=== PATIENT | female | born 1985 | race Caucasian/White ===

== ENCOUNTER 2024-05-26 08:00 | Inpatient (IN) | payer OTHER ==
[2024-05-26] MEDS: ELECTROLYTE-148 SOLN 500 ML IV ONE (10:30)
[2024-05-26] MEDS: CITRIC ACID/SODIUM CITRATE 30 ML UNIT-DOSE CUP PO ONE (10:35)
[2024-05-26] MEDS: ELECTROLYTE-148 SOLN 1,000 ML IV SCH (11:00)
[2024-05-26 11:03] VITALS: BMI 31.6
[2024-05-26] MEDS ORDERED: METHYLERGONOVINE MALEATE 0.2 MG/1 ML AMP IM PRN (11:15)
[2024-05-26] MEDS ORDERED: ACETAMINOPHEN 325 MG TABLET (FP) PO PRN (11:15)
[2024-05-26] MEDS ORDERED: morphine SULFATE (PF) 1 MG/2 ML SYRINGE ONE (11:28)
[2024-05-26] MEDS ORDERED: ONDANSETRON 4 MG/2 ML VIAL IVPUSH PRN (12:55)
[2024-05-26] MEDS ORDERED: OXYTOCIN 20 UNITS in 0.9% NS 20 UNIT/1,000 ML INFUS.BAG IV ONE (13:06)
[2024-05-26] MEDS: OXYTOCIN 20 UNITS in 0.9% NS 20 UNIT/1,000 ML INFUS.BAG IV SCH (14:24)
[2024-05-26 15:10] VITALS: O2SAT 98
[2024-05-26 15:58] VITALS: RESP 18
[2024-05-26] MEDS: IBUPROFEN 800 MG/8 ML IJ IVPB PRN (17:29)
[2024-05-26] MEDS: SIMETHICONE 80 MG TAB.CHEW (FP) PO PRN (20:32)
[2024-05-26] MEDS: ACETAMINOPHEN 1000 MG/100 ML BAG IVPB PRN (23:13)
[2024-05-26] MEDS ORDERED: oxyCODONE HCL 5 MG TABLET PO PRN ×2 (23:15)
[2024-05-27 06:56] LABS: BASO % 0.2 % (0-2.0); EOS % 0.3 % (0-4.5); HEMATOCRIT 30.8 % (32.4-45.2); HEMOGLOBIN 10.2 GM/dL (10.7-15.3); LYMPH % 21.4 % (8-40); MCH 28.3 pg (25.7-33.7); MEAN CELL VOLUME 85.6 fl (80-96); MONO % 6.8 % (3.8-10.2); NEUT % 71.3 % (42.8-82.8); PLATELET COUNT 298 10^3/uL (134-434); RDW 14.3 % (11.6-15.6); WHITE BLOOD COUNT 18.4 K/mm3 (4.0-10.0)
[2024-05-27] MEDS: PRENATAL VITAMINS W/ FOLIC ACID TABLET (FP) PO SCH (10:03)
[2024-05-27] MEDS: FERROUS SO4 325 MG TABLET (FP) PO SCH (10:04)
[2024-05-27] MEDS ORDERED: BISACODYL 10 MG SUPP.RECT RC PRN (11:15)
[2024-05-27] MEDS: IBUPROFEN 600 MG TABLET (FP) PO PRN (16:42)
[2024-05-27] MEDS: SENNOSIDES/DOCUSATE COMBO (SENNA PLUS) TABLET (UD) PO PRN (22:17)
[2024-05-28 09:13] VITALS: BP 100/56; PULSE 89; TEMP 98.4
[2024-05-28] MEDS: DIPHTH,PERTUSS(ACELL),TET 0.5 ML DISP.SYRIN IM ONE (14:13)
== END 2024-05-28 14:45 | disposition home or self-care (01) | DRG 540 ==
LOC: JLDR 09:20 → J3W 16:31
PROVIDERS: ADMIT Obstetrics & Gynecology; ATTEND Obstetrics & Gynecology
PROC: 10D00Z1 Extraction of Products of Conception, Low, Open Approach (ICD-10-PCS; principal; 2024-05-26)
PROC: 0UB70ZZ Excision of Bilateral Fallopian Tubes, Open Approach (ICD-10-PCS; 2024-05-26)
DX: O34.211 Maternal care for low transverse scar from previous cesarean delivery (principal); Z3A.38 38 weeks gestation of pregnancy; Z37.0 Single live birth; Z30.2 Encounter for sterilization
CPT/HCPCS: 36415; 59409; 80053; 85025; 85610; 85730; 86780; 86803; 86850; 86900; 86901; 87389; 88302-TC; 88307-TC; 90715; J0131